=== PATIENT | female | born 1980 | race Caucasian/White ===

== ENCOUNTER 2017-02-19 02:27 | Emergency (ER) | payer BC ==
[~2017-02-19] VITALS: Ht 160 cm; Wt 68.0 kg
[2017-02-19 02:31] VITALS: TEMP 36.7; Ht 160 cm; Wt 68.0 kg
[2017-02-19] MEDS ORDERED: ONDANSETRON INJ 2 MG/ML 2 ML VIAL IV STA (02:38)
[2017-02-19] MEDS ORDERED: SODIUM CHLORIDE 0.9% 1000ML 1,000 ML IV ONE ×2 (02:45)
[2017-02-19 03:04] LABS: BASO % 0.2 %; BASO ABS # 0.03 K/uL (0-0.2); COMPLETE YES; EOS % 0.3 %; HEMATOCRIT 43.3 % (37-47); IG% 0.2 %; LYMPH % 11.2 %; LYMPH ABS # 1.47 K/uL (1.2-3.4); MEAN CORPUSCULAR HEMOGLOBIN 31.2 pg (25-34); MEAN CORPUSCULAR HGB CONC 34.6 g/dl (32-36); MEAN PLATELET VOLUME 9.7 fL (7.4-10.4); MONO % 5.2 %; NEUT % 82.9 %; PLATELET COUNT 236 K/uL (130-400); RED BLOOD COUNT 4.81 M/uL (4.2-5.4); WHITE BLOOD COUNT 13.16 K/uL (4.8-10.8)
[2017-02-19 03:05] VITALS: O2SAT 100
[2017-02-19 03:25] LABS: BUN/CREATININE RATIO 15.9 (10-20); CALCIUM 8.8 mg/dl (8.5-10.1); CREATININE 0.64 mg/dl (0.60-1.20); POTASSIUM 3.3 mmol/L (3.5-5.1)
[2017-02-19 03:28] LABS: ALB/GLOB RATIO 0.9 (0.9-2)
[2017-02-19 04:26] VITALS: BP 113/64; PULSE 77; O2SAT 99
--- NOTE | 2017-02-19 07:07 | EMERGENCY ROOM VISIT NOTE ---
History First contact with patient: 02:35 Chief Complaint: ALCOHOL OVERDOSE Stated Complaint: REALLY COLD, HAD A LOT TO DRINK Nursing Triage Summary: pt states she drank a whole lot of whiskey tonight and now feels ill. History of Present Illness The patient is a 36 year old female who presents to the Emergency Room with complaints of nausea and vomiting after drinking alcohol this evening. The patient is accompanied by her who is concerned that she may have alcohol poisoning. The patient admits to drinking 2-3 mixed drinks over the past one to 2 hours. She does not have pain or complaints herself. The patient rates her discomfort a 0/10 and does not have other complaints. Review of Systems More than 10 systems were reviewed and otherwise negative with the exception of history of present illness. Past Medical/Surgical History No chronic medical disease Family History No pertinent family history Social History Smoking Status: Current Every Day Smoker Current/Historical Medications No Active Prescriptions or Reported Meds Allergies Coded Allergies: No Known Allergies (Unverified , 02/19/17) Physical Exam Vital Signs Date Time Temp Pulse Resp B/P Pulse Ox O2 Delivery O2 Flow Rate FiO2 02/19/17 04:26 77 18 113/64 99 Room Air 02/19/17 03:55 85 18 95/51 98 Room Air 02/19/17 03:05 100 Room Air 02/19/17 02:31 36.7 102 18 115/74 96 Room Air Pain Rating (0-10): 1.0 Physical Exam VITALS: Vitals are noted on the nurse's note and reviewed by myself. Vital signs stable. GENERAL: Well-developed, well-nourished, female who appears mildly intoxicated but pleasant. She is cooperative with the examination. HEAD: Normocephalic atraumatic. NECK: Supple without nuchal rigidity. No lymphadenopathy. No thyromegaly. Cervical spine is nontender. HEART: Regular rate and rhythm without murmurs gallops or rubs. LUNGS: Clear to auscultation bilaterally without wheezes, rales or rhonchi. No retractions or accessory muscle use. ABDOMEN: Positive normal bowel sounds x 4. Soft, nontender, without masses or organomegaly. No guarding or rebound tenderness. MUSCULOSKELETAL: No muscle atrophy, erythema, or edema noted. Full range of motion without joint tenderness in all extremities. Medical Decision & Procedures Laboratory Results 02/19/17 02:47 Red Blood Count 4.81, Mean Corpuscular Volume 90.0, Mean Corpuscular Hemoglobin 31.2, Mean Corpuscular Hemoglobin Concent 34.6, Mean Platelet Volume 9.7, Neutrophils (%) (Auto) 82.9, Lymphocytes (%) (Auto) 11.2, Monocytes (%) (Auto) 5.2, Eosinophils (%) (Auto) 0.3, Basophils (%) (Auto) 0.2, Neutrophils # (Auto) 10.90, Lymphocytes # (Auto) 1.47, Monocytes # (Auto) 0.69, Eosinophils # (Auto) 0.04, Basophils # (Auto) 0.03 02/19/17 02:47 Test 02/19/17 02:47 White Blood Count 13.16 K/uL (4.8-10.8) Red Blood Count 4.81 M/uL (4.2-5.4) Hemoglobin 15.0 g/dL (12.0-16.0) Hematocrit 43.3 % (37-47) Mean Corpuscular Volume 90.0 fL (80-100) Mean Corpuscular Hemoglobin 31.2 pg (25-34) Mean Corpuscular Hemoglobin Concent 34.6 g/dl (32-36) Platelet Count 236 K/uL (130-400) Mean Platelet Volume 9.7 fL (7.4-10.4) Neutrophils (%) (Auto) 82.9 % Lymphocytes (%) (Auto) 11.2 % Monocytes (%) (Auto) 5.2 % Eosinophils (%) (Auto) 0.3 % Basophils (%) (Auto) 0.2 % Neutrophils # (Auto) 10.90 K/uL (1.4-6.5) Lymphocytes # (Auto) 1.47 K/uL (1.2-3.4) Monocytes # (Auto) 0.69 K/uL (0.11-0.59) Eosinophils # (Auto) 0.04 K/uL (0-0.5) Basophils # (Auto) 0.03 K/uL (0-0.2) RDW Standard Deviation 43.9 fL (36.4-46.3) RDW Coefficient of Variation 13.2 % (11.5-14.5) Immature Granulocyte % (Auto) 0.2 % Immature Granulocyte # (Auto) 0.03 K/uL (0.00-0.02) Anion Gap 8.0 mmol/L (3-11) Est Creatinine Clear Calc Drug Dose 114.6 ml/min Estimated GFR () 134.9 Estimated GFR (Non- 116.4 BUN/Creatinine Ratio 15.9 (10-20) Calcium Level 8.8 mg/dl (8.5-10.1) Total Bilirubin 0.2 mg/dl (0.2-1) Aspartate Amino Transf (AST/SGOT) 17 U/L (15-37) Alanine Aminotransferase (ALT/SGPT) 19 U/L (12-78) Alkaline Phosphatase 90 U/L (45-117) Total Protein 7.9 gm/dl (6.4-8.2) Albumin 3.8 gm/dl (3.4-5.0) Globulin 4.1 gm/dl (2.5-4.0) Albumin/Globulin Ratio 0.9 (0.9-2) Lipase 171 U/L (73-393) Ethyl Alcohol mg/dL 128.0 mg/dl (0-3) Medications Administered Medications (Trade) Dose Ordered Sig/Ila Route Start Time Stop Time Status Last Admin Dose Admin Sodium Chloride (Nss 1000ml) 1,000 ml @ 999 mls/hr Q1H1M ONCE IV 02/19/17 02:45 02/19/17 03:45 DC 02/19/17 02:46 999 MLS/HR Ondansetron HCl 4 mg 4 mg NOW STAT IV 02/19/17 02:38 02/19/17 02:39 DC 02/19/17 02:46 4 MG Sodium Chloride (Nss 1000ml) 1,000 ml @ 999 mls/hr Q1H1M ONCE IV 02/19/17 02:45 02/19/17 03:45 DC 02/19/17 02:45 999 MLS/HR ED Course Physical exam and history were performed. Nursing notes and EMR were reviewed. Patient appears to have been drinking alcohol this evening. She does not appear toxic on examination and appears pleasant. She evidently did have vomiting today after drinking. IV access was established and labs were obtained. The patient was hydrated with 2 L of saline and given IV Zofran. The patient's blood work is as above and was reviewed. She does not have a significantly elevated white blood cell count, gross anemia, bandemia, or significant electrolyte imbalance. Her alcohol was mildly elevated at 128. The patient was monitored for some time here in the department, and continued to sober up without complication. She is felt to be stable for discharge home. I do not suspect alcohol toxicity, and feel that she likely was vomiting from her alcohol intoxication. The patient was instructed on conservative measures and otherwise invited back to the ER with any new, worsening, or concerning symptoms. The chart was completed utilizing [employer] Speech Voice Recognition Software. Grammatical errors, random word insertions, pronoun errors, and incomplete sentences are an occasional consequence of this system due to software limitations, ambient noise, and hardware issues. Any formal questions or concerns about the content, text, or information contained within the body of this dictation should be directly addressed to the provider for clarification. . Medical Decision Differential diagnosis: Etiologies such as alcohol intoxication, toxicologic, infection, hypoglycemia, electrolyte abnormalities, cardiac sources, intracerebral event, neurologic, as well as others were entertained. Impression Primary Impression: Alcohol use with intoxication Departure Information Dispostion Home / Self-Care Condition GOOD Prescriptions No Active Prescriptions or Reported Meds Referrals Isabelle Barclay D.O. (PCP) Forms HOME CARE DOCUMENTATION FORM, IMPORTANT VISIT INFORMATION Patient Instructions [facility] Additional Instructions You were seen and evaluated today on an emergency basis only. This is not a substitute for, or an effort to provide, complete comprehensive medical care. It is not possible to recognize and treat all injuries or illnesses in a single emergency department visit. Keep well-hydrated. Small sips of water over a long period of time are better tolerated than large amounts at once. Tylenol 1000 mg every 6 hours as needed for pain (Maximum 3000 mg Tylenol in 24 hr period). Follow up with family doctor as needed. You are welcome to return to the emergency department anytime with new, worsening, or concerning symptoms.
== END 2017-02-19 04:28 | disposition home or self-care (01) ==
LOC: EDBD 02:29 → C.EDB 02:29 → MERGE 02:29 → C.EDB 04:28
DX: F10.129 Alcohol abuse with intoxication, unspecified (principal); Y90.6 Blood alcohol level of 120-199 mg/100 ml; F17.200 Nicotine dependence, unspecified, uncomplicated

== ENCOUNTER → 2018-05-16 | Day surgery (SDC) | payer OTHER ==
[2018-05-10 09:09] VITALS: Ht 157.5 cm; Wt 56.8 kg
--- NOTE | 2018-05-14 16:34 | HISTORY & PHYSICAL EXAMINATION ---
DATE OF ADMISSION: 05/16/2018 CHIEF COMPLAINT: Pelvic pain, severe dysmenorrhea. HISTORY OF PRESENT ILLNESS: Patient is a 38 year-old nullip. She has had worsening pelvic pain and severe dysmenorrhea for over a year. Pain has been getting progressively worse, lasting longer with each period. Now comes before her periods, after her periods. She can have occasional pain with intercourse and this pain is nonresponsive to nonnarcotic pain relievers. She is presently being admitted for a diagnostic laparoscopy for evaluation of severe pelvic pain. ALLERGIES: She has no known drug allergies. MEDICATIONS: She is on medications for acid reflux. SOCIAL HISTORY: She smokes about 5 cigarettes a day for 2 years. No excessive alcohol intake. Works at [employer]. FAMILY HISTORY: Mother at age 66 of a stroke. Father 72 in good health. Two brothers in good health. REVIEW OF SYSTEMS: HEAD: No symptoms of frequent or severe headaches. EYES: No symptoms of blurred vision, double vision. EARS: No symptoms of frequent ear infection, difficulty hearing. NOSE: No symptoms of frequent nosebleeds, difficulty breathing through her nose. PHYSICAL EXAMINATION: GENERAL: Well-developed, well-nourished 38 year-old female, alert, oriented x3 and cooperative, in no acute distress, appeared her stated age. EYES: Conjunctivae are pink. Sclerae are white, no evidence of jaundice. EARS: Had normal light reflex bilaterally. NOSE: Had normal mucosa. Septum is midline. There were no polyps. THROAT: No erythema or evidence of infection. MOUTH: Teeth are in good state of repair. HEAD: Normocephalic, normal distribution of hair. NECK: Supple. Trachea midline. Thyroid is not enlarged. There is no adenopathy appreciated. Both carotids are of good intensity. CHEST: Clear to auscultation and percussion. No wheezes, rales or rhonchi appreciated. BREASTS: Normal. ABDOMEN: Soft and nontender. PELVIC: Revealed a normal appearing cervix. Uterus was top normal size. There was tenderness and nodularity of the uterosacral ligaments. MUSCULOSKELETAL: Revealed no calf tenderness. IMPRESSIONS OF THIS CASE: Pelvic pain, severe dysmenorrhea, suspected endometriosis. [facility]
[~2018-05-16] VITALS: Ht 157.5 cm; Wt 56.8 kg
[~2018-05-16] MED LIST: ATROPINE SULFATE 0.1 MG/ML 5ML SYR IV PRN; BUPIVACAINE/EPINEPHRINE 0.5% MPF 1:200,000 30 ML VIAL ONE; DEXAMETHASONE SOD INJ 4 MG/ML VIAL ONE; EpHEDrine SULFATE INJ 50 MG/ML AMP IV PRN; FENTANYL CITRATE INJ 50 MCG/1 ML 2 ML VIAL IV PRN; FENTANYL CITRATE INJ 50 MCG/1 ML 2 ML VIAL ONE; GLYCOPYRROLATE INJ 0.2 MG/ML VIAL ONE; HYDROCODONE/ACETAMIN 5/325MG TAB PO PRN; HYDROmorphone INJ 1 MG/ML SYR IV PRN; IBUPROFEN 200 MG TAB ONE; IBUPROFEN 600 MG TAB PO PRN; KETOROLAC TROMETHAMINE 30 MG/ML VIAL IV. PRN; LACTATED RINGER'S 1000ML 1,000 ML IV SCH; LIDOCAINE HCL 2% 2 ML VIAL (20MG/ML) ONE; MIDAZOLAM HCL 1 MG/ML 2ML VIAL ONE; NEOSTIGMINE METHYLSULFATE 5 MG/5 ML SYR ONE; OMEP-334 PO; ONDANSETRON INJ 2 MG/ML 2 ML VIAL IV PRN; ONDANSETRON INJ 2 MG/ML 2 ML VIAL ONE; OXYCODONE/ACETAMINOPHEN 5-325 TAB PO PRN; PHENYLEPHRINE 100MCG/ML 5ML SYR IV PRN; PROMETHAZINE HCL INJ 12.5 MG in SODIUM CHLORIDE 0.9% 50ML 50 ML IV PRN; PROPOFOL IV EMULSION 10 MG/ML 20 ML VIAL ONE; ROCURONIUM BROMIDE 10 MG/ML 5 ML VIAL ONE; SODIUM CHLORIDE 0.9% 1000ML 1,000 ML IV SCH; SODIUM CHLORIDE 0.9% INJ 10 ML VIAL ONE
--- NOTE | 2018-05-16 08:09 | History & Physical Bridge Note ---
H&P Re-Evaluation Bridge Note: I have examined the patient, reviewed the History & Physical and in the interval since the performance of the History & Physical I have noted the following changes of clinical significance: No changes noted
--- NOTE | 2018-05-16 09:17 | [facility] Post Operative Brief Note ---
Immediate Operative Summary Operative Date May 16, 2018. Pre-Operative Diagnosis Pelvic pain Severe Dysmenorrhea Suspected Endometriosis Post-Operative Diagnosis Same as pre-op pending lab results Procedure(s) Performed Laparoscopic Evaluation with Peritoneum Biopsy Surgeon Plastic Sheeting Cutter Surgeon(s) None Estimated Blood Loss 5ML Findings Consistent with Post-Op Diagnosis Fluids (cc crystalloids) 1000 ml Specimens A.Peritoneum Biopsy Drains None Anesthesia Type General Complication(s) none Disposition Disposition: Recovery Room / PACU Overlapping Procedure I was immediately available: during the entire case
--- NOTE | 2018-05-16 09:21 | Discharge Instructions-SurgCtr ---
Discharge Instructions Date of Service May 16, 2018. Visit Reason for Visit: Severe Dysmenorrhea Discharge Discharge Diagnosis / Problem: endometriosis Discharge Goals Goal(s): Improve function, Learn about illness Activity Recommendations Activity Limitations: as noted below ACTIVITY RECOMMENDATIONS: * Rest the first 2-3 days. You should be back to your normal activity levels by day 3. * No heavy lifting for 2 weeks. * No intercourse, tampons or douching for 1-2 weeks. * You may shower the next day. * Do not drive anytime that you are taking narcotic pain medicines. RETURN TO SCHOOL/WORK: * May return to school or work after 2-3 days. DIET: Nausea may occur in the immediate post-operative period. If so, take clear liquids such as tea, bouillon, apple juice until all nausea has subsided, then resume usual diet. MEDICATIONS: Resume previous medications unless instructed otherwise by your surgeon. Ibuprofen 200mg 2-3 tablets every 4-6 hours as needed -- OR -- Aleve 2 tablets every 8-12 hours as needed for post-operative discomfort Medications are over the counter. Tylenol may be used if above medications are contraindicated or not preferred. Medication should be taken with food or milk. Do not take on an empty stomach. SPECIAL CARE INSTRUCTIONS: * Check temperature twice daily for one week. report any elevation over 101 degrees. * You may experience some vagina spotting and/or bleeding. This is normal for 1 -2 weeks and should not be heavier than a normal period. If it is unusual in amount, call your physician. * Post-operative discomfort may consist of a sore throat, a "bloated" feeling and pain in the shoulders. these are normal symptoms, which usually only last for 2-3 days. * Remove band-aids tomorrow and shower. There is no need to replace band-aids unless there is drainage or discomfort. FOLLOW UP VISIT: Call your doctor's office for a post-operative 2 week visit if not already scheduled. Anesthesia . Post Anesthesia Instructions: If you have had General Anesthesia or IV Sedation: * Do not drive today. * Resume driving when surgeon permits. * Do not make important decisions or sign legal documents today. * Call surgeon for: 1. Temperature elevations greater than 101 degrees F. 2. Uncontrollable pain. 3. Excessive bleeding. 4. Persistent nausea and vomiting. 5. Medication intolerance (nausea, vomiting or rash). * For nausea and vomiting use only clear liquids such as: tea, soda, bouillon until nausea subsides, then gradually increase diet as tolerated. * If you have any concerns or questions, call your surgeon's office. If physician is unavailable and it is an emergency, call 911 or go to the nearest emergency room. . Instructions / Follow-Up Instructions / Follow-Up ACTIVITY RECOMMENDATIONS: * Rest the first 2-3 days. You should be back to your normal activity levels by day 3. * No heavy lifting for 2 weeks. * No intercourse, tampons or douching for 1-2 weeks. * You may shower the next day. * Do not drive anytime that you are taking narcotic pain medicines. RETURN TO SCHOOL/WORK: * May return to school or work after 2-3 days. DIET: Nausea may occur in the immediate post-operative period. If so, take clear liquids such as tea, bouillon, apple juice until all nausea has subsided, then resume usual diet. MEDICATIONS: Resume previous medications unless instructed otherwise by your surgeon. Ibuprofen 200mg 2-3 tablets every 4-6 hours as needed -- OR -- Aleve 2 tablets every 8-12 hours as needed for post-operative discomfort Medications are over the counter. Tylenol may be used if above medications are contraindicated or not preferred. Medication should be taken with food or milk. Do not take on an empty stomach. SPECIAL CARE INSTRUCTIONS: * Check temperature twice daily for one week. report any elevation over 101 degrees. * You may experience some vagina spotting and/or bleeding. This is normal for 1 -2 weeks and should not be heavier than a normal period. If it is unusual in amount, call your physician. * Post-operative discomfort may consist of a sore throat, a "bloated" feeling and pain in the shoulders. these are normal symptoms, which usually only last for 2-3 days. * Remove band-aids tomorrow and shower. There is no need to replace band-aids unless there is drainage or discomfort. FOLLOW UP VISIT: Call your doctor's office for a post-operative 2 week visit if not already scheduled. Diet Recommendations Home Diet: resume previous diet Procedures Procedures Performed: Laparoscopic Evaluation with Peritoneum Biopsy Pending Studies Studies pending at discharge: no Medical Emergencies . Who to Call and When: Medical Emergencies: If at any time you feel your situation is an emergency, please call 911 immediately. . Non-Emergent Contact Non-Emergency issues call your: Metal Neutralizer Call Non-Emergent contact if: temperature is above 100.5 . . "Provider Documentation" section prepared by Jonas Vaca. .
--- NOTE | 2018-05-16 09:55 | Anesthesia Progress Nt - [facility] ---
Anesthesia Post Op Note Date & Time May 16, 2018 at 09:54 Vital Signs Pain Intensity: 0 Vital Signs Past 12 Hours Date Time Temp Pulse Resp B/P (MAP) Pulse Ox O2 Delivery O2 Flow Rate FiO2 05/16/18 09:50 36.5 99 Room Air 05/16/18 09:48 58 13 05/16/18 09:48 58 13 110/73 100 05/16/18 09:43 59 14 100 05/16/18 09:43 58 14 05/16/18 09:42 95/75 05/16/18 09:38 67 18 05/16/18 09:38 68 18 100 05/16/18 09:37 123/66 05/16/18 09:35 77 16 98 05/16/18 09:35 78 16 05/16/18 09:33 119/70 05/16/18 09:30 78 17 100 05/16/18 09:30 78 17 05/16/18 09:29 79 17 100 05/16/18 09:29 79 17 05/16/18 09:27 104/73 05/16/18 09:25 129/80 05/16/18 09:24 97 96 05/16/18 09:24 36.3 94 12 129/80 100 Mask 9 05/16/18 09:24 97 05/16/18 07:52 37.0 76 16 104/70 (81) 100 Room Air Notes Mental Status: alert / awake / arousable, participated in evaluation Pt Amnestic to Procedure: Yes Nausea / Vomiting: adequately controlled Pain: adequately controlled Airway Patency, RR, SpO2: stable & adequate BP & HR: stable & adequate Hydration State: stable & adequate Anesthetic Complications: no major complications apparent
[2018-05-16 10:08] VITALS: TEMP 36.9
[2018-05-16 10:29] VITALS: BP 105/69; PULSE 58; O2SAT 100
--- NOTE | 2018-05-16 12:24 | OPERATIVE REPORT ---
DATE OF OPERATION: 05/16/2018 PROCEDURE: Diagnostic laparoscopy with peritoneal biopsy. INDICATIONS FOR SURGERY: Severe dysmenorrhea, suspected endometriosis. POSTOPERATIVE DIAGNOSIS: Possible endometriosis. SURGEON: Dr. Vaca. ESTIMATED BLOOD LOSS: 5 mL. ANESTHESIA: General. OPERATIVE FINDINGS AND PROCEDURE: The patient was brought to the OR table, correctly identified by armband and conversation. General anesthesia was administered. Perineum, vagina, lower abdomen were painted with Betadine paint, draped in usual sterile fashion. Catheter was used to empty the bladder. Careful pelvic exam under anesthesia revealed a normal size anteverted uterus. Weighted speculum was placed in the posterior vagina. Anterior lip of the cervix grasped with single tooth tenaculum and an acorn cannula was inserted to cervical canal for manipulation of the uterus. Attention was then turned to the abdomen. Subumbilical area was infiltrated with local with epinephrine. The Veress needle was inserted into the abdominal cavity. Position was checked with normal saline and then 2-1/2 liters of carbon dioxide gas was passed under low pressure. Incision was then widened laterally. A large cannula and trocar was inserted. Trocar was removed, the laparoscope was inserted. Good visualization of abdominal structures was obtained at this time. Second puncture site was made 3 fingerbreadths above the pubic symphysis. This area was infiltrated with local with epinephrine. Stab wound was placed and a 5 mm trocar and sleeve was inserted under direct visualization. Trocar was removed and a blunt probe was inserted along with the head down position, the bowels were removed from the pelvic cavity and a careful and thorough anatomical search of the entire pelvis was done. First of all, we did note the appendix, which we took photographs of and which appeared to be normal. We noted one suspicious lesion on the bladder flap, which we photographed and then later biopsies using some local with epinephrine under the lesion. Both ovaries were freely mobile. We flipped them over. Both tubes appeared normal, followed them out to the fimbriated end. There were no lesions on the ovaries. We checked the anterior and posterior leaves of both broad ligaments. They were clean. We looked into the cul-de-sac, checked along the uterosacral ligaments. I could see the path of the ureter on the left side and I inspected the cul-de-sac extensively and could not see any suspicious lesions. The only lesion, which was suspicious for endometriosis was the one on the bladder and that was the one that we biopsied and sent to the lab. After biopsying it, it was a shallow biopsy, there was no significant bleeding, so no cauterization was necessary. Following this, after all the photographs had been taken, thorough inspection had been done. Gas was expressed manually. Instruments were removed. Ports were cleansed with Betadine and sutured with interrupted Vicryl. I attest to the content of the Intraoperative Record and any orders documented therein. Any exception s are noted below.
== END | disposition home or self-care (01) ==
LOC: X.SURG 07:48 → MERGE 08:15
PROVIDERS: ATTEND Obstetrics & Gynecology
DX: N94.6 Dysmenorrhea, unspecified (principal); F17.200 Nicotine dependence, unspecified, uncomplicated